=== PATIENT | female | born 1990 | race Hispanic/Latino ===

== ENCOUNTER 2018-11-24 16:23 | Inpatient (IN) | payer BC, OTHER ==
[2018-11-24 16:30] VITALS: BMI 48.0
[2018-11-24 17:55] LABS: BASO # 0.1 K/uL (0.0-0.2); BASO % 0.4 % (0.0-2.0); EOS # 0.1 K/uL (0.0-0.7); EOS % 0.4 % (0.0-4.0); HEMOGLOBIN 11.5 g/dL (12.0-16.0); LYMPH # 1.6 K/uL (1.0-4.3); LYMPH % 12.9 % (20.0-40.0); MEAN CELL VOLUME 82.5 fl (81.0-99.0); MEAN CORPUSCULAR HEMOGLOBIN 27.1 pg (27.0-31.0); MEAN CORPUSCULAR HGB CONC 32.9 g/dL (33.0-37.0); MEAN PLATELET VOLUME 9.5 fl (7.2-11.7); MONO # 0.5 K/uL (0.0-0.8); MONO % 4.4 % (0.0-10.0); NEUT # 9.9 K/uL (1.8-7.0); NEUT % 81.9 % (50.0-75.0); NRBC % 0.1 % (0.0-0.0); RBC 4.23 Mil/uL (3.80-5.20); RED CELL DISTRIBUTION WIDTH 15.8 % (11.5-14.5); WHITE BLOOD COUNT 12.1 K/uL (4.8-10.8)
--- NOTE | 2018-11-24 20:22 | OBADHP ---
Datetime: 11/24/2018 17:00 Admit Comment, IP Provider: 28 yo f 38.5 wk sent By Mahogany Patel for induction of labo r, due to oligo dx by US. Othwerwise patient have no complains, she denies any Vag bleed, discharge, water gush or contraction. ROS neg except if mentioned Allergy: Penecillin (rash) PCP Dr. Degroot O. MED PNV PMH none PSH: cyst removal OBGYN HSV PFH none Social former smoker, denies smoke, drink or drug use during Assessment and Plan 28 yo f 38.5 wk sent By Mahogany Patel for induction of labor, due to oligo dx by US. Admitted to L_D Start Induction of labor protocol Start on IV fluid monitor VItals Q4h Anesthesia on case Dr Liana Sigala PGY1 Case discussed with Dr Mccullough Addendum by Dr. Mccullough: I have evaluated the patient independently and I agree with the above Pelvic Type - PN: Not Done Extremities - PN: Normal Abdomen - PN: Normal Back - PN: Normal Breast - PN: Not Done Lungs - PN: Normal Heart - PN: Normal Thyroid - PN: Normal Neurologic - PN: Normal HEENT - PN: Normal General - PN: Normal FHR - Baseline A Provider: 150 Comments, ACOG Physical Exam: Heart no extra heart sound lung clear abd non-tender BS+ Back no CVA tenderness Vital Signs Provider: Reviewed; Within Normal Limits IP Chief Complaint: Scheduled induction of labor NICHD Variability Prov Fetus A: Moderate 6-25bpm NICHD Accel Fetus A IP Provider: [id number] Genitourinary Exam: Normal DTRs - PN: Not Done EGA AdmitDate IP: 38.5 IP Adm Impression: Term, intrauterine IP Admit Plan: Admit to unit; Initiate labor protocol
--- NOTE | 2018-11-25 09:04 | OBPN ---
Datetime: 11/25/2018 09:00 IP Progress Note Comment: Pt seen waling hallways...IOL with Cytotec 50mcg q 4h (3 doses given) Will allow to ambualte/eat Datetime: 11/24/2018 17:00 FHR - Baseline A Provider: 150 Vital Signs Provider: Reviewed; Within Normal Limits NICHD Accel Fetus A IP Provider: [id number] NICHD Variability Prov Fetus A: Moderate 6-25bpm
[2018-11-25 14:44] VITALS: RESP 20
--- NOTE | 2018-11-25 22:56 | OBPN ---
Datetime: 11/25/2018 21:45 IP Progress Plan: Induction; Cervical Ripening IP Progress Note Comment: Cervidil placed for continued IOL FHR Category Provider Fetus A: Category I
[2018-11-26] MEDS ORDERED: Nalbuphine HCL 10 mg/ml Ampule IVP PRN (04:31)
[2018-11-26] MEDS: Lactated Ringer's 1,000 ML IV SCH ×5 (04:38→18:44)
[2018-11-26] MEDS ORDERED: Bupivacaine HCl 0.5% PF (30 ml) Inj ONE (06:59)
[2018-11-26] MEDS ORDERED: Fentanyl/Bupivacaine HCl 250 ML EPI ONE (07:32)
[2018-11-26] MEDS ORDERED: Oxytocin 30 UNIT in NS 500 ml 30 UNITS/500 ML BAG IV ONE (16:16)
[2018-11-26] MEDS: Oxytocin 30 UNIT in NS 500 ml 30 UNITS/500 ML BAG IV ONE ×2 (18:34→19:50)
[2018-11-27] MEDS ORDERED: Oxycodone/Acetaminophen 5/325 mg Tab PO PRN ×4 (01:11→03:11)
[2018-11-27] MEDS ORDERED: Benzocaine/Menthol SPRAY TOP PRN ×2 (01:11→03:11)
[2018-11-27 15:18] LABS: BASO # 0.1 K/uL (0.0-0.2); BASO % 0.3 % (0.0-2.0); EOS # 0.1 K/uL (0.0-0.7); EOS % 0.5 % (0.0-4.0); HEMOGLOBIN 9.6 g/dL (12.0-16.0); LYMPH # 2.1 K/uL (1.0-4.3); LYMPH % 13.1 % (20.0-40.0); MEAN CELL VOLUME 84.5 fl (81.0-99.0); MEAN CORPUSCULAR HEMOGLOBIN 27.1 pg (27.0-31.0); MEAN CORPUSCULAR HGB CONC 32.1 g/dL (33.0-37.0); MONO # 0.6 K/uL (0.0-0.8); MONO % 3.9 % (0.0-10.0); NEUT # 13.1 K/uL (1.8-7.0); NEUT % 82.2 % (50.0-75.0); RBC 3.54 Mil/uL (3.80-5.20); RED CELL DISTRIBUTION WIDTH 16.6 % (11.5-14.5); WHITE BLOOD COUNT 15.9 K/uL (4.8-10.8)
[2018-11-27 22:45] VITALS: BP 137/94; PULSE 90; TEMP 98.3; O2SAT 99
== END 2018-11-27 17:00 | disposition home or self-care (01) | DRG 807 ==
LOC: H.L&D 16:28 → H.OB/GYN 11-27 02:45
PROVIDERS: ADMIT Obstetrics & Gynecology; ATTEND Obstetrics & Gynecology
PROC: 4A1HXCZ Monitoring of Products of Conception, Cardiac Rate, External Approach (ICD-10-PCS; 2018-11-24)
PROC: 10E0XZZ Delivery of Products of Conception, External Approach (ICD-10-PCS; principal; 2018-11-26)
PROC: 0KQM0ZZ Repair Perineum Muscle, Open Approach (ICD-10-PCS; 2018-11-26)
DX: O41.03X0 Oligohydramnios, third trimester, not applicable or unspecified (principal); Z37.0 Single live birth; Z3A.39 39 weeks gestation of pregnancy; O70.1 Second degree perineal laceration during delivery; Z87.891 Personal history of nicotine dependence; O77.0 Labor and delivery complicated by meconium in amniotic fluid